=== PATIENT | male | born 1980 | race Caucasian/White ===

== ENCOUNTER 2017-02-09 02:40 | Emergency (ER) | payer OTHER ==
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
[2017-02-09 03:02] LABS: BASOPHILS % (AUTO) 0.2 % (0-3); EOSINOPHILS % (AUTO) 0.8 % (0-5); Mean Corpuscular Hemoglobin 29.3 pg (27.0-35.0); Mean Corpuscular Volume 86.1 fL (81-100); NEUTROPHILS % (AUTO) 68.2 % (40-74); Platelet Count 228 bil/L (150-400)
[2017-02-09 03:20] LABS: INR 0.99 ratio
[2017-02-09 03:33] LABS: Magnesium 2.1 mg/dL (1.6-2.6)
[2017-02-09] MEDS ORDERED: 0.9% Sodium Chloride 1,000 ML IV ONE ×2 (04:40→06:55)
[2017-02-09] MEDS ORDERED: Ondansetron 2 mg/mL 2 mL Inj ONE (05:41)
[2017-02-09] MEDS ORDERED: Ondansetron 2 mg/mL 2 mL Inj IVPUSH ONE (06:55)
[2017-02-09 07:08] VITALS: BP_SYST 123; BP_SYST 91; BP_DIAS 62; BP_DIAS 75; PULSE 86; PULSE 90
[2017-02-09 07:49] VITALS: BP 118/86; PULSE 90; RESP 18; O2SAT 99
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
[2017-02-09 08:36] LABS: APPEARANCE,URINE CLEAR (CLEAR,HAZY); COLOR,URINE YELLOW (YELLOW); OCCULT BLOOD,URINE NEGATIVE (NEGATIVE); UROBILINOGEN,URINE NORMAL (NORMAL)
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
== END 2017-02-09 07:02 | disposition home or self-care (01) ==
LOC: SED 02:40
DX: S01.21XA Laceration without foreign body of nose, initial encounter (principal); S01.81XA Laceration without foreign body of other part of head, initial encounter; S80.211A Abrasion, right knee, initial encounter; S80.212A Abrasion, left knee, initial encounter; V48.0XXA Car driver injured in noncollision transport accident in nontraffic accident, initial encounter; Y92.410 Unspecified street and highway as the place of occurrence of the external cause; Y93.89 Activity, other specified; Y99.8 Other external cause status; F10.120 Alcohol abuse with intoxication, uncomplicated; G40.909 Epilepsy, unspecified, not intractable, without status epilepticus
CPT/HCPCS: 12013; 12052; 70450; 71010; 72125; 72170; 80053; 81001; 83690; 83735; 85014; 85018; 85025; 85610; 85730; 86850; 93005; 99285; G0390; J7030